=== PATIENT | female | born 1990 | race Hispanic/Latino ===

== ENCOUNTER 2018-04-14 08:41 | Inpatient (IN) | payer OTHER ==
[2018-04-14] MEDS ORDERED: miSOPROStol 100 MCG TAB VAG ONE (16:00)
[2018-04-14] MEDS ORDERED: miSOPROStol 100 MCG TAB ONE ×2 (16:35→16:40)
[2018-04-14] MEDS ORDERED: PROMETHAZINE 25 MG/ML VIAL IM PRN (16:37)
[2018-04-14] MEDS ORDERED: Ringers Lactate 1,000 ML IV PRN (16:37)
[2018-04-14] MEDS ORDERED: CARBOPROST TROME 250 MCG/ML IM PRN (16:37)
[2018-04-14] MEDS ORDERED: MEPERIDINE HCL 25 MG/0.5 ML IV PRN (16:37)
[2018-04-14] MEDS ORDERED: METHYLERGONOVINE 0.2MG/ML AMP IM PRN (16:37)
[2018-04-14] MEDS ORDERED: MIDAZOLAM HCL 2 MG/2 ML INJ IV PRN (16:37)
[2018-04-14] MEDS ORDERED: BUTORPHANOL 1 MG/ML INJ IV PRN (16:37)
[2018-04-14] MEDS ORDERED: OXYTOCIN/LR 20 UNIT/1,000 ML BAG IV SCH (17:00)
[2018-04-14] MEDS: Ringers Lactate 1,000 ML IV SCH ×2 (17:00→21:23)
[2018-04-14] MEDS ORDERED: miSOPROStol 100 MCG TAB VAG SCH (17:00)
[2018-04-14 17:06] LABS: RPR Titer ND
[2018-04-14 17:12] LABS: Absolute Lymphocytes (CBC) 1.8 K/uL (0.7-4.9); Absolute Monocytes 0.5 K/uL (0.1-1.3); Absolute Neutrophil 5.4 K/uL (1.8-8.0); Basophils % 0.1 % (0-1.3); Eosinophils % 0.7 % (0-4.4); Hematocrit 32.6 % (36.0-45.0); Lymphocytes % 23.3 % (15.3-44.8); MCH 29.7 pg (27.0-35.0); MCV 86.7 fL (80-100); MPV 10.6 fL (7.6-11.3); Monocytes % 6.5 % (3.3-12.3); RBC Red Blood Cell Count 3.76 M/uL (3.86-4.86)
[2018-04-14 17:18] LABS: Urine Appearance CLEAR; Urine Bilirubin NEGATIVE (NEG); Urine Blood NEGATIVE (NEG); Urine Color YELLOW; Urine Glucose NEGATIVE (NEG); Urine Protein NEGATIVE (NEG); Urine Specific Gravity <=1.005 (1.005-1.030); Urine Urobilinogen 0.2 mg/dL (0.2-1.0); Urine pH 6.5 (5.0-7.0)
[2018-04-14 17:19] LABS: Urine Microscopic Reflex NO UMIC
[2018-04-14 17:30] VITALS: BMI 42.1
[2018-04-14] MEDS ORDERED: miSOPROStol 100 MCG TAB PO SCH (21:00)
--- NOTE | 2018-04-14 21:35 | PREOPHP ---
Date of Admission: 04/14/2018 This is a 27-year-old primigravida, 39 weeks and 5 days, for Cytotec induction. Full discussion abou t the pros and cons, and risks and possible complications. Rh positive, immune to Rubella, and negat larry beta strep screen. 1.5 cm, still cervix posterior, baby is -2 station. Cervix is 40% to 50% eff aced. 25 mcg of Cytotec placed intravaginally. We will wait 4 hours and then go to p.o. dose every 4 hours for 2 more doses. Then several hours after the third and final dose, start Pitocin. This shipley s been discussed in my office with the patient and again today. Anticipate delivery sometime tomorro venu GARCIA/ANGELINE Voice ID: [id number]
[2018-04-14] MEDS ORDERED: ZOLPIDEM TARTRATE 10 MG TABLET PO PRN (21:47)
[2018-04-14 23:59] LABS: RPR (Rapid Plasma Reagin) NON-REACT (NON-REACT)
[2018-04-15] MEDS ORDERED: FENTANYL CITR 100 MCG/2 ML IV ONE (07:37)
[2018-04-15] MEDS ORDERED: ROPIVACAINE HCL 100 ML IV PRN (07:38)
[2018-04-15] MEDS ORDERED: ROPIVACAINE HCL 2 MG/ML 100ML IV ONE (07:39)
[2018-04-15] MEDS ORDERED: ROPIVACAINE HCL 20 ML ONE (08:21)
--- NOTE | 2018-04-15 11:55 | PN ---
The patient is in active labor at this point, 3.5 to 4 cm, 80% effaced, vertex, -1 station. FHTs nor mal, reactive. She has had 1 mg of Stadol thus far. Probably will be requesting epidural at this po int. She has agreed to try to wait until 5 cm if possible. Pitocin has been started and we will gra dually increase it, but at this point, I anticipate more rapid progress. RADHA/ANGELINE Voice ID: [id number] Report ID: [id number]
--- NOTE | 2018-04-15 16:40 | PN ---
The patient is on 20 milliunits of Pitocin, mago every 2 minute. She is 4-1/2 cm. She has re ceived her epidural, but is too numb, so we have moved the maintenance from 10 to 8. She will do pel don rocks as we think the baby is probably occiput posterior. Full discussion with the patient. She knows that she should start making progress from this point forward at a fairly steady pace. RADHA/ANGELINE Voice ID: [id number] Report ID: [id number]
[2018-04-15] MEDS ORDERED: CARBOPROST TROME 250 MCG/ML IM ONE (19:18)
[2018-04-15] MEDS ORDERED: METHYLERGONOVINE 0.2MG/ML AMP IM ONE (19:18)
[2018-04-15] MEDS ORDERED: NA CIT/CITRIC AC 30 ML ORAL UDC PO ONE (19:30)
[2018-04-15] MEDS ORDERED: CEFAZOLIN 2 GM in NA CHLORIDE 0.9% 100 ML IVPB ONE (19:49)
[2018-04-15] MEDS ORDERED: METOCLOPRAMIDE 10 MG/2mL INJ IV ONE (20:00)
[2018-04-15] MEDS ORDERED: FAMOTIDINE 20 MG/2 ML VIAL IV ONE ×2 (20:45→20:57)
[2018-04-15] MEDS ORDERED: CEFAZOLIN/SWI 2gm 2 GM/20 ML SYR ONE (20:58)
[2018-04-15] MEDS ORDERED: MORPHINE SULFATE/PF 1 MG/ML (10 ML AMP) ONE (21:18)
[2018-04-15] MEDS ORDERED: OXYTOCIN 10 UNIT/ML ML IV ONE (21:19)
[2018-04-15] MEDS ORDERED: LIDOCAINE 2% W/EPI 1:200,000 MPF 20 ML VIAL IM ONE (21:22)
[2018-04-16] VITALS: O2SAT 99
--- NOTE | 2018-04-16 00:46 | PN ---
The patient is 7.5 cm, but cervix especially on the right side is very edematous. Baby is definitely occiput-posterior with caput forming. FHTs are normal, still very reactive. Epidural still effecti ve. We tried to see if we could reduce the cervix, but it is not possible. I am going to check the patient again in another 0.5 hour. She is making very slow progress and we really do not know how bi g the baby is, it is a boy, and I think we are dealing with a baby that is at least 8 pounds or more. We would have anticipated more rapid progress when she reached 5, but at this point we cannot compl etely rule out the possibility that she can dilate and deliver vaginally, but discussed with the francie ent that if she does not make any progress in the next hour or so, we will probably consider operativ e delivery. RADHA/ANGELINE Voice ID: [id number] Report ID: [id number]
--- NOTE | 2018-04-16 01:41 | PN ---
Patient has stuck at about 8.5 cm with an edematous cervical lip especially on the right side. Tried to push past that, but it was not effective, and has elected now to ask for section. Infec tion; blood loss; anesthetic complications; injury to bladder, bowel, ureter; postoperative complicat ions; clots in legs discussed. The patient does feel well, does not constitute all the possible prob lems that could occur during the following surgery. Dr. Anguiano has been called and we will try to u se the epidural which was very effective previously. Gill Box Fixer surgeon has been notified as well. B juan looked good on the monitor. Patient's heart and lungs are clear. Vital signs had been normal, a lthough the blood pressures have been up a little bit when she is trying to push but not significantl y. Basically unchanged physical exam, unchanged pelvic exam with the baby stuck at about 0 station i n straight occiput posterior 8.5 cm with an edematous cervical lip on the right side especially. RADHA/ANGELINE Voice ID: [id number] Report ID: [id number]
--- NOTE | 2018-04-16 01:56 | PN ---
The patient is still 8.5 to 9 cm, edematous right cervical area, and baby is still posterior. We tri ed to get her to push and she felt like she needed to see if she could push past the cervix, but she has not been able to do that after half an hour of pushing. We have given her options of waiting ano ther half hour and see if the cervix will reduce on its own or proceeding with the section. Infection, bleeding, blood clots in legs, and using sequential hose to prevent this discussed. She will let us know after she discuss it with her family about whether she wishes to await another half prior to see if she progresses or proceed with the at this point. RADHA/ANGELINE Voice ID: [id number] Report ID: [id number]
--- NOTE | 2018-04-16 02:11 | PN ---
The patient is approximately 9 and 9.5. With pushing, she can push past the cervix, but then in betw een contractions, somewhat comes back. She will begin to push now regularly and we will see what she does during the next hour or so. Baby still looks good. She knows that if she cannot push the baby down to a more advanced station where we could make sure she is completely dilated and the baby is f urther down then we could possibly help with vacuum suction. RADHA/ANGELINE Voice ID: [id number] Report ID: [id number]
[2018-04-16] MEDS ORDERED: CEFAZOLIN 2 GM in NA CHLORIDE 0.9% 100 ML IVPB ONE (05:00)
[2018-04-16] MEDS ORDERED: KETOROLAC 30 MG/ML INJ IV PRN (05:21)
[2018-04-16] MEDS ORDERED: CEFAZOLIN/SWI 2gm 2 GM/20 ML SYR ONE (05:31)
[2018-04-16] MEDS ORDERED: D5LR 1,000 ML with OXYTOCIN 20 UNIT IV SCH ×2 (06:00)
--- NOTE | 2018-04-16 06:05 | OP ---
Surgeon: Marcus Bernstein MD Shayy Pulliam is 27-year-old primigravida, at 39 weeks, 5 days, when Cytotec was used this morning r upture of membranes at approximately 2.5 cm clear fluid. The patient progressed during the day. Sta dol IV 1 mg x2. At approximately 4 cm, epidural anesthesia was instituted. The patient progressed s lowly to about 8.5 cm, noted to have an edema to cervix especially on the right side. Tried to push past this last bit of remaining cervix but was unable to after 30 minutes of pushing. At that point it was decided to proceed with section, infection, blood loss, anesthetic complications, inj ury to bladder, bowel, ureter, postop complications, clots in legs, pneumonia discussed. The patient knows fully well this does not constitute all the possible problems that could occur during or follo wing surgery. 2 g of Ancef ordered for prophylaxis. The patient was taken to surgery, prepped and d raped. Timeout was performed. A Pfannenstiel incision was created. The incision was carried to the fascia. The fascia was incised, the fascia was entered bluntly. Low transverse uterine incision cr eated. A 7 pounds, 14 ounce male infant was delivered. Apgars 9 and 9. Cord blood specimen was christiano en. The placenta was removed manually and uterus was cleared of clot and blood and exteriorized. Mi ld hypotonus. A 0.2 mg of Methergine IM as well as IV drip Pitocin. Estimated blood loss during the procedure 1100 cc. The patient remained stable throughout. The uterus closed with a running locked stitch of 1 chromic followed by 4 [id number] stitches along the suture line for complete hemost asis. Uterus replaced in the peritoneal cavity. There was noted to be significant filmy adhesions n oted on the posterior portion of the cervix probably from previous STD infection. These were all arlette ed without any difficulty. The uterine incision again was inspected. No further bleeding. The musc les were put together with 0 Vicryl approximately 3 to 4 stitches. Fascia was then closed with 1 PDS running from either angle to the midline. Subcutaneous tissue was closed with 2-0 plain. Absorbabl e micky were placed and then metal micky. The patient tolerated all procedures well. She transf erred back to her room in good condition. Final Diagnoses: Term intrauterine 39 weeks 6 days, Cytotec induction, failure to progress in labor, primary section, epidural anesthesia, mild uterine hypotonus, filmy uterine adhes ions especially involving the posterior surface of the uterus. RADHA/ANGELINE Voice ID: [id number] Report ID: [id number]
[2018-04-16] MEDS ORDERED: FAMOTIDINE 20 MG/2 ML VIAL IV SCH (09:00)
--- NOTE | 2018-04-16 11:21 | PN ---
Heraclio is very alert this morning. Output is good, but she still has concentrated urine. We will in crease her p.o. intake and increase her IV rate. She has taken no analgesics thus far. Hematocrit o rdered at 5 a.m. and still pending. If hematocrit is within a reasonable range, we will hydrate her, and then probably discontinue her IV around lunchtime. Gordon catheter will be discontinued sometime later today. Full postop talk given. Anticipate dismissing the patient either Friday afternoon or evening if Pediatrics releases the baby sooner than 48 hours. The patient knows to call my office fo r followup instructions. We will see her next week for staple removal. RADHA/ANGELINE Voice ID: [id number] Report ID: [id number]
[2018-04-16] MEDS ORDERED: OXYTOCIN/LR 20 UNIT/1,000 ML BAG IV ONE (12:01)
[2018-04-16] MEDS: Oxycodone HCl/Acetaminophen 1 TAB TAB PO PRN ×3 (17:26→21:51)
[2018-04-17] MEDS: IBUPROFEN 400 MG TAB PO PRN (01:01)
[2018-04-17] MEDS: Oxycodone HCl/Acetaminophen 1 TAB TAB PO PRN ×3 (08:00→20:06)
[2018-04-17 19:09] LABS: HBsAG Nonreactive (Nonreactive)
[2018-04-18] MEDS: IBUPROFEN 400 MG TAB PO PRN ×2 (00:40→08:20)
--- NOTE | 2018-04-18 05:20 | DS ---
Hospital Course: Shayy Pulliam is a 27-year-old primigravida, at 39 weeks 6 days, Cytotec induction , who underwent primary section for failure to progress, reached 8.5 cm and never was able t o progress beyond that point. Baby persistent occiput posterior. Primary section low trans verse cervical under epidural anesthesia, 7 pounds, 14 ounces male infant, Apgars 9 and 9. Mild uter ine hypotonus, 1100 cc blood loss. Ancef pre and postop for prophylaxis. Postoperatively has done q uite well, is afebrile, will be dismissed later today. To report back to my office next week for fol lowup. To report any temperature elevation of 100 degrees or greater, severe pain, heavy bleeding, o r any other type of abnormalities. Dismissed with tramadol for analgesia, although she may elect to take Motrin instead. She has had her Tdap immunization during her . No post-epidural probl ems. Final Diagnoses: Term intrauterine at 39 weeks 6 days, Cytotec induction, failure to progr ess in labor, persistent occiput posterior, mild uterine hypotonus. RADHA/ANGELINE Voice ID: [id number] Report ID: [id number]
[2018-04-18 08:08] VITALS: BP 103/54; TEMP 97.3
[2018-04-18] MEDS: Oxycodone HCl/Acetaminophen 1 TAB TAB PO PRN (08:20)
== END 2018-04-18 13:00 | disposition home or self-care (01) | DRG 766 ==
LOC: 2ND-WC 16:14
PROVIDERS: ADMIT Specialist; ATTEND Specialist
PROC: 3E0P7VZ Introduction of Hormone into Female Reproductive, Via Natural or Artificial Opening (ICD-10-PCS; 2018-04-14)
PROC: 10D00Z1 Extraction of Products of Conception, Low, Open Approach (ICD-10-PCS; principal; 2018-04-15 20:50)
DX: O62.0 Primary inadequate contractions (principal); O64.0XX0 Obstructed labor due to incomplete rotation of fetal head, not applicable or unspecified; O62.2 Other uterine inertia; Z3A.39 39 weeks gestation of pregnancy; Z37.0 Single live birth
CPT/HCPCS: 36415; 81003; 85014; 85025; 86592; 86901; 87340; 88307; 99218; J0595; J0690; J2210; J2550; J2590; J2765; J2795; J3010

== ENCOUNTER 2023-06-27 18:12 | Emergency (ER) | payer SELFPAY ==
[2023-06-27 19:04] LABS: SARS-CoV-2 Antigen Rapid Res Negative (Negative)
[2023-06-27] MEDS ORDERED: HYDROCODONE/CHLORPHEN 5 ML/OSYR ONE (19:08)
--- NOTE | 2023-06-27 20:16 | RAD REPORT ---
EXAM DESCRIPTION: RAD - Chest Pa And Lat (2 Views) - 06/27/2023 7:15 pm CLINICAL HISTORY: COUGH COMPARISON: Chest Pa And Lat (2 Views) dated 10/08/2016 TECHNIQUE: PA and lateral views of the chest were obtained. FINDINGS: The lungs are clear. Heart size is normal and central vasculature is within normal limits. No pleural effusion or pneumothorax seen. No acute bony finding noted. IMPRESSION: No acute cardiopulmonary process.
--- NOTE | 2023-06-27 21:03 | ER ---
Nurse's Notes [facility] Name: Shayy Pulliam Age: 32 yrs Sex: Female : 1990 Arrival Date: 06/27/2023 Time: 18:12 Bed 12 Private MD: Diagnosis: Influenza due to other identified influenza virus with other respiratory manifestations Presentation: 06/27 18:30 Chief complaint: Patient states: cough, congestion in chest, chest hurts when she iw coughs , started today , has been having a stuffy nose and headache since Friday. Coronavirus screen: Client presents with at least one sign or symptom that may indicate coronavirus-19. Initial Sepsis Screen: Does the patient meet any 2 criteria? No. Patient's initial sepsis screen is negative. Does the patient have a suspected source of infection? No. Patient's initial sepsis screen is negative. Risk Assessment: Do you want to hurt yourself or someone else? Patient reports no desire to harm self or others. 18:30 Method Of Arrival: Ambulatory iw 18:30 Acuity: LINDSAY 4 iw 18:30 Ebola Screen: Patient negative for fever greater than or equal to 101.5 degrees iw Fahrenheit, and additional compatible Ebola Virus Disease symptoms Patient denies exposure to infectious person. Onset of symptoms was June 23, 2023. Triage Assessment: 21:07 General: Appears ill, Behavior is calm, cooperative, Reports feeling ill for fatigue as6 for. Pain: Complains of pain in chest. Respiratory: Reports cough that is. Historical: - Allergies: 18:31 No Known Allergies; iw - Home Meds: 18:31 None [Active]; iw - PMHx: 18:31 None; iw - PSHx: 18:31 section; iw - Social history:: Smoking status: Patient reports the use of cigarette tobacco products, denies chronic smoking, but will smoke occasionally, Reported history of juuling and/or vaping. Screenin:06 [facility] ED Fall Risk Assessment (Adult) Score/Fall Risk Level 0 - 2 = Low Risk. Abuse as6 screen: Denies threats or abuse. Denies injuries from another. Nutritional screening: No deficits noted. Tuberculosis screening: No symptoms or risk factors identified. Vital Signs: 18:30 BP 110 / 98; Pulse 91; Resp 19; Temp 98.8; Pulse Ox 100% on R/A; Weight 117.93 kg; iw Height 5 ft. 3 in. ; 21:07 BP 107 / 84; Pulse 79; Resp 18 S; Pulse Ox 99% on R/A; as6 18:30 Body Mass Index 46.05 (117.93 kg, 160.02 cm) ED Course: 18:14 Patient arrived in ED. im 18:16 Doyle Wnog PA is PHCP. cp 18:16 Yumiko Bowman MD is Attending Physician. cp 18:31 Triage completed. iw 18:32 Arm band placed on. iw 18:47 SARS RAPID Sent. iw 18:47 Influenza Screen (a \T\ B) Sent. iw 18:47 Strep Sent. iw 19:16 XRAY Chest Pa And Lat (2 Views) In Process Unspecified. EDMS 21:06 No provider procedures requiring assistance completed. Patient did not have IV access as6 during this emergency room visit. 21:07 Bed in low position. Call light in reach. Provided Education on: follow up, rx teaching.as6 Administered Medications: 18:55 Drug: Tussionex Pennkinetic ER PO Suspension 5 ml PO once; if not Route: PO; jl7 20:19 Follow up: Response: No adverse reaction as6 Medication: 21:07 VIS not applicable for this client. as6 Outcome: 21:02 Discharge ordered by . cp 21:06 Discharged to home ambulatory, with significant other, as6 21:06 Condition: stable 21:06 Discharge instructions given to patient, Instructed on discharge instructions, follow up and referral plans. medication usage, Demonstrated understanding of instructions, follow-up care, medications, Prescriptions given X 2, 21:07 Patient left the ED. as6 Signatures: Dispatcher [employer] EDMS Odette Swanson, RN RN iw Doyle Wong PA PA cp Mindi Kuo RN RN jl7 Shaw Mora RN RN as6 Kassi Whitney Corrections: (The following items were deleted from the chart) 18:32 18:30 Resp 19bpm; Pulse Ox 100% RA; Temp 98.8F; 117.93 kg; Height 5 ft. 3 in.; BMI: iw 46.0; iw
--- NOTE | 2023-06-27 21:03 | EDPHYS ---
Physician Documentation [facility] Name: Shayy Pulliam Age: 32 yrs Sex: Female : 1990 Arrival Date: 06/27/2023 Time: 18:12 Bed 12 Private MD: ED Physician Yumiko Bowman HPI: 06/27 19:00 This 32 yrs old Female presents to ER via Ambulatory with complaints of Chest cp Pain - from cough, Flu Symptoms. 19:00 The patient or guardian reports cough, that is intermittent. Onset: The cp symptoms/episode began/occurred today. 19:00 Severity of symptoms: in the emergency department the symptoms are unchanged, despite cp home interventions. Associated signs and symptoms: Pertinent positives: chest pain, with cough, sore throat, Pertinent negatives: diarrhea, vomiting. Patient reports symptoms started this past Friday but now coughing and chest pain with cough started today. Historical: - Allergies: 18:31 No Known Allergies; iw - Home Meds: 18:31 None [Active]; iw - PMHx: 18:31 None; iw - PSHx: 18:31 section; iw - Social history:: Smoking status: Patient reports the use of cigarette tobacco products, denies chronic smoking, but will smoke occasionally, Reported history of juuling and/or vaping. ROS: 19:05 Constitutional: Negative for fever, poor PO intake, cp 19:05 Eyes: Negative for injury, pain, redness, and discharge, cp 19:05 ENT: Negative for drainage from ear(s), ear pain, difficulty swallowing, difficulty handling secretions, 19:05 Cardiovascular: Positive for chest pain, with cough, 19:05 Respiratory: Positive for cough, "sounds productive", 19:05 Abdomen/GI: Negative for abdominal pain, vomiting, diarrhea, constipation, 19:05 Neuro: Negative for altered mental status, dizziness, headache, weakness, 19:05 All other systems are negative, Exam: 19:10 Constitutional: The patient appears in no acute distress, alert, awake, non-toxic, well cp developed, well nourished, obviously ill, 19:10 Head/Face: Normocephalic, atraumatic. cp 19:10 Eyes: Periorbital structures: appear normal, Conjunctiva: normal, no exudate, no injection, Sclera: no appreciated abnormality, Lids and lashes: appear normal, bilaterally, 19:10 ENT: External ear(s): are unremarkable, Nose: is normal, Mouth: Lips: moist, Oral mucosa: pink and intact, moist, Posterior pharynx: Tonsils: no enlargement, no exudate, erythema, that is mild, exudate, is not appreciated, 19:10 Neck: ROM/movement: is normal, is supple, without pain, no range of motions limitations, no meningismus, 19:10 Chest/axilla: Inspection: normal, 19:10 Cardiovascular: Rate: normal, Rhythm: regular, 19:10 Respiratory: the patient does not display signs of respiratory distress, Respirations: normal, no use of accessory muscles, no retractions, labored breathing, is not present, Breath sounds: decreased breath sounds, are not appreciated, stridor, is not appreciated, + upper airway congestion. wheezing: is not appreciated, 19:10 Abdomen/GI: Inspection: abdomen appears normal, Palpation: abdomen is soft and non-tender, in all quadrants, 19:10 Back: pain, is absent, ROM is normal, Vital Signs: 18:30 BP 110 / 98; Pulse 91; Resp 19; Temp 98.8; Pulse Ox 100% on R/A; Weight 117.93 kg; iw Height 5 ft. 3 in. ; 21:07 BP 107 / 84; Pulse 79; Resp 18 S; Pulse Ox 99% on R/A; as6 18:30 Body Mass Index 46.05 (117.93 kg, 160.02 cm) iw MDM: 18:37 Patient medically screened. cp 19:00 Differential Diagnosis: Bronchitis Influenza Pharyngitis Otitis Media Viral Syndrome cp Pneumonia. 21:01 Data reviewed: vital signs, nurses notes, lab test result(s), radiologic studies, plain cp films. 21:01 Counseling: I had a detailed discussion with the patient and/or guardian regarding the cp historical points, exam findings, and any diagnostic results supporting the discharge/admit diagnosis, lab results, radiology results. 21:01 Response to treatment: the patient's symptoms have mildly improved after treatment, and cp as a result, I will discharge patient. 06/27 18:38 Order name: Strep; Complete Time: 20:59 cp 06/27 18:38 Order name: Influenza Screen (a \\T\\ B); Complete Time: 20:59 cp 06/27 20:59 Interpretation: Abnormal: FLUB FLU B ----- POSITIVE for FLU B protein antigen. 06/27 18:40 Order name: SARS RAPID; Complete Time: 20:59 06/27 19:08 Order name: Throat Culture EDHI 06/27 18:38 Order name: XRAY Chest Pa And Lat (2 Views); Complete Time: 20:59 cp Administered Medications: 18:55 Drug: Tussionex Pennkinetic ER PO Suspension 5 ml PO once; if not Route: PO; jl7 20:19 Follow up: Response: No adverse reaction as6 Disposition Summary: 06/27/23 21:02 Discharge Ordered Notes: Location: Home cp Problem: new cp Symptoms: have improved cp Condition: Stable cp Diagnosis - Influenza due to other identified influenza virus with other respiratory cp manifestations Followup: cp - With: Private Physician - When: 2 - 3 days - Reason: Worsening of condition Discharge Instructions: - Discharge Summary Sheet cp - Influenza, Adult cp Forms: - Medication Reconciliation Form cp - Thank You Letter cp - Antibiotic Education cp - Prescription Opioid Use cp - Patient Portal Instructions cp - Leadership Thank You Letter cp Prescriptions: - Bromfed DM 2-30-10 mg/5 mL Oral syrup - administer 10 milliliter ORAL route every 6 hours; 180 milliliter; Refills: 0, cp Product Selection Permitted - Ibuprofen 800 mg Oral Tablet - take 1 tablet ORAL route every 8 hours As needed take with food; 30 tablet; cp Refills: 0, Product Selection Permitted Signatures: Dispatcher [employer] Odette Flannery, RN RN iw Doyle Wong PA PA cp Mindi Kuo RN RN jl7 Shaw Mora RN as6 Corrections: (The following items were deleted from the chart) 19:33 18:38 SARS-COV-2 RT PCR+[id number].[id number] ordered. [facility] 06/28 14:49 06/27 19:00 Onset: The symptoms/episode began/occurred yesterday, cp cp
[2023-06-27 21:24] VITALS: TEMP 98.8
[2023-06-27 21:25] VITALS: BP 107/84; O2SAT 99
== END 2023-06-27 21:07 | disposition home or self-care (01) ==
LOC: ER 18:12
DX: J10.1 Influenza due to other identified influenza virus with other respiratory manifestations (principal); Z11.52 Encounter for screening for COVID-19
CPT/HCPCS: 36415; 71046; 87070; 87081; 87804; 87811; 99283